=== PATIENT | male | born 1960 | race Caucasian/White ===

== ENCOUNTER 2020-10-11 10:48 | Emergency (ER) | payer BC, SELFPAY ==
[2020-10-11 10:57] VITALS: BP 158/80; PULSE 72; RESP 18; TEMP 37.2; O2SAT 97
--- NOTE | 2020-10-11 11:06 | W.ED.GENAD ---
Discharge Plan Disposition Patient Disposition: HOME Condition: Stable Discharge Details Clinical Impression: Closed pelvic fracture, Haematoma of pelvis Primary Care Provider: Pauline,Local ED Provider: Yolande Butterfield Home Meds and New Rx's Prescriptions: Continued lovastatin 10 mg Tablet 10 mg PO DAILY RF: 0 amlodipine 10 mg Tablet 10 mg PO DAILY RF: 0 hydrochlorothiazide 25 mg Tablet 25 mg PO DAILY RF: 0 cholecalciferol (vitamin D3) [Vitamin D3] 50 mcg (2,000 unit) Tablet 2,000 unit PO DAILY RF: 0 Discharge Instructions Instructions: Pelvic Fracture (ED), Hematoma (ED) Additional Instructions: You have a nondisplaced pelvic fracture and hematoma. Please use crutches to help with ambulation. You may touchdown weight-bear but please try to remain as nonweightbearing as possible. Encourage rest, ice. Tylenol and/or ibuprofen as needed for discomfort. He will need follow-up with the trauma surgeon. Please call primary care tomorrow to discuss referral to appropriate surgical consultation. Please bring the disc of your images and radiology read with you. If you develop increased pain, numbness/tingling or other new/worsening symptoms please seek care urgently once again. Medical Decision Making Patient is a pleasant 60-year-old male presenting today with concern complaint of right hip pain. He reports a prior to arrival he was walking into ski gear, although did not have skis on, when he slipped on a step and fell landing directly on the right hip. Since that time, patient has not been able to ambulate secondary to pain in the right hip. He denies any numbness or tingling. He was helmeted at the time of the fall. Denies any loss of consciousness. No nausea or vomiting. Denies any headache. No neck or back pain. Denies any shortness of breath. Is not noted trauma elsewhere. No previous surgeries, fractures or injuries to his hip. On exam, patient appears nontoxic. Exam significant for small abrasion to the right elbow. Patient does have full range of motion of the right elbow, no swelling. Exam of the right hip pertinent for significant swelling over the lateral aspect. No discoloration, break in the skin. 2+ distal pulses. Does have full range of motion of the hip. Unable to weight-bear. Was able to stand and pivot with assistance. Patient took Tylenol prior to arrival. He declines any further analgesics. Will obtain x-ray to evaluate for potential fracture. I do not see objective evidence of fracture at this time. No shortening, rotational deformity. Patient is neurovascularly intact. FINDINGS: Bones/joints: Bilateral degenerative changes of the hip joint spaces. Deformity superolateral right acetabulum. This appears chronic. No acute fracture. Soft tissues: Unremarkable. IMPRESSION: No acute fracture. Discussed these findings with the patient. We did discuss the acetabular deformity. I had the patient attempt to ambulate but he has difficulty with any weightbearing on this extremity. Given for discomfort and inability airway, I remain concerned for fracture despite none seen on initial x-ray. I reviewed the CT scan note fracture to the pelvis. Call orthopedics. Consulted with Dr. Hankins who reviewed the images. He advised that this is a stable fracture that will likely be treated nonoperatively. He advised patient should be touchdown weightbearing on crutches. He did advise follow-up with trauma surgeon. As the patient typically resides in [place], the patient would prefer to follow-up with his home physician. Dr. Hankins feels that this is a safe option. We did review that the patient has good sensation and 2+ distal pulses. Spoke with the patient's , Roz, . Patient discharged home with . Patient here today for the images. Care of this fracture was discussed. He will be in contact with primary care tomorrow to discuss referral to trauma surgery. Return precautions were discussed. Patient is ambulating well with crutches. Follow-up with questions or concerns were addressed in this plan. Patient's of the Tylenol and ibuprofen will be sufficient to help with discomfort and did not want any further analgesics at this time. HPI General Mode of arrival: wheelchair. Date/Time Provider Initiated Documentation: 10/11/20 10:50. Limitations to Documentation: no limitations. Information obtained by: patient and RN notes reviewed. History of Present Illness 60 year old M presents to the emergency department with the chief complaint of right hip pain, described as moderate, with intensity rated at 7. Quality is described as aching, and is localized to the right and lower extremity. Patient reports no radiation. Patient started experiencing this minute(s) and it has been constant. Immobilization improves symptom(s), Movement worsens symptoms . Patient notes no other symptoms.. Patient did receive the following treatments prior to arrival, other (APAP) Related Data Home Medications Medication Instructions Recorded Confirmed amlodipine 10 mg PO DAILY 10/11/20 10/11/20 cholecalciferol (vitamin D3) 2,000 unit PO DAILY 10/11/20 10/11/20 [Vitamin D3] hydrochlorothiazide 25 mg PO DAILY 10/11/20 10/11/20 lovastatin 10 mg PO DAILY 10/11/20 10/11/20 Allergies Allergy/AdvReac Type Severity Reaction Status Date / Time No Known Allergies Allergy Unverified 10/11/20 11:03 General Stated Complaint: Orthopedic SUDHA: 4 Review of Systems Constitutional Constitutional: Reports as per HPI, Denies chills, Denies fever(s), Denies headache(s) and Denies weakness ENT Ears, Nose, Mouth, and Throat: Denies headache(s) Cardiovascular Cardiovascular: Reports as per HPI Respiratory Respiratory: Reports as per HPI and Denies cough Musculoskeletal Musculoskeletal: Reports as per HPI and Denies tingling Integumentary/Breasts Skin/Breast: Reports as per HPI, Denies rash and Denies wounds Neurologic Neurologic: Reports as per HPI, Denies headache(s), Denies tingling, Denies paresthesias and Denies weakness [facility] Social History Smoking/Tobacco Use Status: Never Smoking risk assessment performed?: Yes Alcohol Intake: current Alcohol Intake frequency: 0-2 drinks per day Drug use: Never Substance use type: does not use Do you feel safe at home: Yes Do you feel safe in your relationship?: Yes Exam Const General: cooperative, healthy appearing, comfortable, no acute distress, well developed and well groomed Nutritional Appearance: average body habitus and well nourished Orientation: alert and awake [facility] Head: normal to inspection, no palpable skull fracture and normocephalic Neck Neck: normal visual inspection and full ROM Chest Chest: normal inspection of the chest, no crepitus, no localized rib tenderness and no tenderness Resp Effort & Inspection: normal respiratory effort, able to speak in complete sentences and no respiratory distress Auscultation: clear to auscultation bilaterally Cardio Rate: regular rate Rhythm: regular rhythm Heart Sounds: S1 normal and S2 normal Back/Spine/Pelvis Cervical Spine: normal cervical lordosis, cervical ROM normal, No cervical spinal tenderness and No step off deformity Thoracic/Lumbar Spine: thoracic and lumbar spine normal to inspection, No thoracic spinal tenderness and No lumbar spinal tenderness Pelvis: no pain with anterior-posterior compression, no pain with lateral compression, no buttock ecchymosis and no buttock tenderness Skin Trauma: abrasion (right elbow) Neuro General: patient alert and patient awake Cognition: normal cognition Speech: speech normal Gait: antalgic (has been largely non-ambulatory, was able to weight bear with assistance) Motor: muscle tone normal throughout Sensory Exam: no sensory deficits noted Extrem General: full ROM, capillary refill normal, no pedal edema, no calf tenderness and abnormal gait Right upper extremity: normal to inspection (abrasion posteriorright elbow, full ROM), full ROM, normal capillary refill and no joint enlargement Right lower extremity: full ROM, normal capillary refill, hip/thigh Details: abnormal to inspection (swelling over greater trochanter) Details: not obviously dislocated, not erythematous, not foreshortened and not externally rotated, tenderness Location: of the hip Location: laterally, swelling Location: at the hip and normal ROM; no abrasions, no lacerations, no ecchymosis, no crepitus, no deformity and no unusual warmth, knee Details: normal to inspection and normal ROM; no tenderness, no swelling and no deformity, lower leg Details: normal to inspection; no erythema, no tenderness and no localized swelling, ankle Details: normal to inspection and normal ROM; no tenderness and no swelling and foot Details: normal capillary refill, normal to inspection and vascular exam Details: dorsalis pedis pulse present and posterior tibial pulse present; no tenderness Psych Appearance: grossly normal and well kempt Mental Status: mental status grossly normal Speech and Movement: speech and movement normal Course Vital Signs Vital signs: Vital Signs Temperature 37.2 C 10/11/20 10:57 Pulse 72 10/11/20 10:57 Respiratory Rate 18 10/11/20 10:57 Blood Pressure 158/80 H 10/11/20 10:57 Pulse Oximetry 97 10/11/20 10:57 Temperature 37.2 C 10/11/20 10:57 Pulse 72 10/11/20 10:57 Respiratory Rate 18 10/11/20 10:57 Respiratory Effort Non-Labored 10/11/20 11:02 Blood Pressure 158/80 H 10/11/20 10:57 Blood Pressure Position Sitting 10/11/20 10:57 Pulse Oximetry 97 10/11/20 10:57 Oxygen Delivery Method Room Air 10/11/20 10:57 Oxygen Flow Rate 0 10/11/20 10:57 Pain Level 7 10/11/20 10:57
--- NOTE | 2020-10-11 11:34 | DI.RAD_ITS ---
EXAM: XR HIP RT COMPLETE AP PELVIS CLINICAL HISTORY: fall, lateral hip pain/swelling. TECHNIQUE: 2D digital imaging was performed. COMPARISON: No exams were available for comparison FINDINGS: There are moderate degenerative changes in both hips. There is a corticated 12 x 11 millimeter ossif ied density off the superolateral aspect of the right acetabulum which does not have the appearance o f an acute fracture. However, there appear to be subtle fracture lines in the superior pubic ramus o n the right side.. No fractures of the femoral head and neck. No other pelvic fractures identified. IMPRESSION: Subtle fracture of superior pubic ramus right side and possibly right acetabulum. Degenerative changes both hips. DATA REPOSITORY: RADIATION DOSE DELIVERED:
--- NOTE | 2020-10-11 11:51 | DI.VRAD_ITS ---
Addendum created by Pedro Knox MD on 10/11/2020 12:57:04 PM EDT: There is a fracture of the right superior pubic ramus and possible mid right acetabulum. Initial report created on 10/11/2020 11:51:40 AM EDT: PROCEDURE INFORMATION: Exam: XR Right Hip Exam date and time: 10/11/2020 11:19 AM Age: 60 years old Clinical indication: Right hip; Patient HX: Fall hip pain/swelling TECHNIQUE: Imaging protocol: XR Right hip. Views: 2 or 3 views hip with pelvis when performed. COMPARISON: No relevant prior studies available. FINDINGS: Bones/joints: Bilateral degenerative changes of the hip joint spaces. Deformity superolateral right acetabulum. This appears chronic. No acute fracture. Soft tissues: Unremarkable. IMPRESSION: No acute fracture. Dictated and Authenticated by: Pedro Knox MD. Ordering:ANGELLA Lanier MD
--- NOTE | 2020-10-11 12:32 | DI.CT_ITS ---
EXAM: CT LOWER EXTREMITY RT WO CLINICAL HISTORY: fall on hip, difficulty weight bearing. TECHNIQUE: Imaging Protocol: Axial computed tomography images with coronal and sagittal reformatted images were created and reviewed. CONTRAST MATERIAL: None COMPARISON: X-rays earlier same date reviewed FINDINGS: There is a fracture of the right hip acetabulum roof extending superiorly into the iliac bone, nondis placed. There is also a comminuted fracture of the anterior acetabulum and ipsilateral right superio r pubic ramus. No diastasis of the symphysis pubis and the or are. There is a subtle nondisplaced f racture of the inferior pubic ramus. The ischial tuberosity appears intact. There is hematoma withi n the right side of the pelvis adjacent to the acetabular fracture. This is mostly within the ipsila teral right obturator internus muscle. No diastasis of the SI joint. Right femoral head and neck appear intact and there is no fracture of the inter and subtrochanteric r egions IMPRESSION: Multiple fractures involving the anterior acetabulum and extending into the iliac bone. Comminuted f racture of the superior pubic ramus on the right side and nondisplaced subtle fracture of the ipsilat eral inferior pubic ramus. Adjacent hematoma in the right pelvic sidewall medial to the acetabulum i nvolving the right obturator internus muscle. Is No fractures of the femoral head and neck RADIATION DOSE DELIVERED: 229.6mGy.cm Total DLP DATA REPOSITORY: All CT scans at this facility are submitted to the National Radiology Data Registry (NRDR) Dose Index Registry (DIR) with the [employer] ([employer]). RADIATION OPTIMIZATION: All CT scans at this facility use at least one of these dose optimization te chniques: automated exposure control; mA and/or kV adjustment per patient size (includes targeted exa ms where dose is matched to clinical indication); or iterative reconstruction.
[2020-10-11 12:45] VITALS: BP 151/76; PULSE 76; RESP 18; TEMP 37.1; O2SAT 97
--- NOTE | 2020-10-11 12:56 | DI.VRAD_ITS ---
Addendum created by Pedro Knox MD on 10/11/2020 1:04:32 PM EDT: Findings were discussed with CAMILA ZABALA at 10/11/2020 1:04 PM EDT. Initial report created on 10/11/2020 12:55:59 PM EDT: PROCEDURE INFORMATION: Exam: CT Right Lower Extremity Without Contrast, Hip Exam date and time: 10/11/2020 12:22 PM Age: 60 years old Clinical indication: Pain and injury or trauma; Blunt trauma; Hip; Right; Injury details: Pain/fall - unable to bear weight TECHNIQUE: Imaging protocol: CT of the Right lower extremity without contrast was performed. Exam focused on the hip. Radiation optimization: All CT scans at this facility use at least one of these dose optimization techniques: automated exposure control; mA and/or kV adjustment per patient size (includes targeted exams where dose is matched to clinical indication); or iterative reconstruction. COMPARISON: CR XR HIP RT COMPLETE AP PELVIS 10/11/2020 11:29 AM FINDINGS: Bones/joints: There is a fracture of the right superior pubic ramus which is mildly comminuted. No evidence of right hip fracture. Chronic changes superior right acetabulum. There is a fracture of the right ilium that extends into the inferior right SI joint. No diastasis of the SI joint. Fracture is nondisplaced. Fracture of the mid acetabulum and anterior column of the acetabulum. Lower lumbar spine intact. Soft tissues: Right pelvic sidewall hematoma. IMPRESSION: 1. Linear nondisplaced fracture of the right ilium with extension into the right inferior SI joint. No diastasis of the joint. 2. Fracture of the anterior and mid column of the right acetabulum. 3. Fracture of the right superior pubic ramus. 4. Right pelvic sidewall hematoma. Dictated and Authenticated by: Pedro Knox MD. Ordering:ANGELLA Lanier MD
== END 2020-10-11 13:40 | disposition home or self-care (01) ==
PROVIDERS: Emergency Provider Physician Assistant
DX: S32.82XA Multiple fractures of pelvis without disruption of pelvic ring, initial encounter for closed fracture (principal); W00.1XXA Fall from stairs and steps due to ice and snow, initial encounter
CPT/HCPCS: 99284; 73502; 73700